=== PATIENT | female | born 1995 | race Caucasian/White ===

== ENCOUNTER 2017-06-21 01:01 | Emergency (ER) | payer SELFPAY ==
[~2017-06-21] VITALS: Ht 167.6 cm; Wt 63.5 kg
[2017-06-21] MEDS ORDERED: HALOPERIDOL LACTATE INJ 5 MG/ML VIAL ONE (01:07)
[2017-06-21] MEDS ORDERED: diphenhydrAMINE HCL 50 MG/ML VIAL ONE (01:07)
[2017-06-21] MEDS ORDERED: LORAZEPAM INJ 2 MG/ML VIAL ONE (01:08)
--- NOTE | 2017-06-21 01:12 | NUR ---
[id number] FOR AMS S/P METH USE, AGITATED IN FIELD, TACHYCARDIC. PT REFUSES TO ANSWER QUESTIONS AT THIS TIME. RR EVEN AND UNLABORED. NO SOB NOTED. NAD NOTED. NO NVD AT THIS TIME. PT GOWNED AND PLACED ON MONITOR. DR. STEWART AT BEDSIDE FOR EVAL.
--- NOTE | 2017-06-21 01:22 | NUR ---
LAB AT BEDSIDE FOR BLOOD DRAW.
--- NOTE | 2017-06-21 01:23 | NUR ---
VERBAL ORDERS PER MD TO HOLD IV FLUIDS AND TO GIVE MEDICATION ORDERS IM INSTEAD OF IV.
[2017-06-21] MEDS ORDERED: diphenhydrAMINE HCL 50 MG/ML VIAL IV ONE (01:30)
[2017-06-21] MEDS ORDERED: IV NS 0.9% 1,000 ML BAG IV ONE (01:30)
[2017-06-21] MEDS ORDERED: LORAZEPAM INJ 2 MG/ML VIAL IVP ONE (01:30)
[2017-06-21] MEDS ORDERED: HALOPERIDOL LACTATE INJ 5 MG/ML VIAL IVP ONE (01:30)
[2017-06-21 01:33] LABS: BASOPHILS % (AUTO) 0.2 % (0.0-2.0); HEMATOCRIT 37 % (33-45); HEMOGLOBIN 12.4 g/dL (11.5-14.8); LYMPHOCYTES # (AUTO) 1.6 /CMM (0.8-4.8); LYMPHOCYTES % (AUTO) 22.2 % (20.0-44.0); MEAN CORPUSCULAR HEMOGLOBIN 27 PG (26.0-33.0); MEAN CORPUSCULAR HGB CONC 33 g/dl (31.0-36.0); MEAN CORPUSCULAR VOLUME 82 fL (82-100); MONOCYTES # (AUTO) 0.5 /CMM (0.1-1.30); MONOCYTES % (AUTO) 7.4 % (2.0-12.0); NEUTROPHILS % (AUTO) 70.2 % (43.0-81.0); PLATELET COUNT (AUTO) 245 /CMM (150-450); RDW COEFFICIENT OF VARIATION 14.1 (11.5-15.0); RED BLOOD CELL COUNT(AUTO) 4.52 MIL/uL (4.0-5.2); WHITE BLOOD COUNT (AUTO) 7.1 K/uL (4.3-11.0)
[2017-06-21 01:43] LABS: CALCIUM, SERUM 9.2 mg/dL (8.5-10.1); CREATININE 0.9 mg/dL (0.6-1.3); POTASSIUM 3.9 mmol/L (3.5-5.1)
--- NOTE | 2017-06-21 01:49 | NUR ---
PT TO CT.
--- NOTE | 2017-06-21 02:01 | NUR ---
PT RETURNED FROM CT.
--- NOTE | 2017-06-21 04:40 | NUR ---
REFER TO DOWNTIME CHARTINGS. PT APPEARS COMFORTABLE. EASILY AROUSED. VSS.
[2017-06-21 04:46] LABS: CREATINE KINASE MB 0.9 ng/mL (0-3.6)
--- NOTE | 2017-06-21 05:18 | NUR ---
Patient is resting comfortably in bed with eyes closed. Easily aroused. VSS
--- NOTE | 2017-06-21 07:09 | NUR ---
REPORT GIVEN TO WASHINGTON BILLY FOR NAT.
--- NOTE | 2017-06-21 07:10 | NUR ---
RECIEVED REPORT, PATIENT REMAINS STABLE. WILL CONTINUE TO MONITOR.
--- NOTE | 2017-06-21 10:45 | NUR ---
SW AT BEDSIDE.
--- NOTE | 2017-06-21 11:01 | NUR ---
SW received a call from SANTO Pascal in ED requesting for SW to see pt. since pt. requested for SW. SW met with pt. bedside. Pt. appears to be sleepy. Pt. is covered in tattoos. Pt. was admitted for methamphetamine overdose. SW had to repeat questions several times before pt. was able to answer. [place] [id number] [facility] in [place], and states " I just want to get out of here". SW inquired with pt. where she would like to go. Pt. states home and gave SW the aforementioned address. Pt. stated she wants to go to [place] who lives at the apartment. SW offered drug treatment programs referrals, however pt. declined. SW received taxi voucher from nursing supervisor [employer] and gave to WASHINGTON Headley to arrange for transportation for pt. to go home. No other social service needs are requested at this time. SW is available, if needed.
[2017-06-21 11:03] VITALS: BP 126/84
--- NOTE | 2017-06-21 11:06 | NUR ---
Patient discharged to home in stable condition. Written and verbal after care instructions given. Patient verbalizes understanding of instruction.
== END 2017-06-21 11:06 | disposition home or self-care (01) ==
LOC: ER 01:06
DX: F29 Unspecified psychosis not due to a substance or known physiological condition (principal); F15.10 Other stimulant abuse, uncomplicated; R45.1 Restlessness and agitation; E86.0 Dehydration; R51 Headache
CPT/HCPCS: 36415; 70450; 80048; 82550; 82553; 82962; 85025; 96360; 96361; 96372 ×3; 99285; A4606; J1200; J1630; J2060; J7030; Z7610